=== PATIENT | female | born 1990 | race Two or more races ===

== ENCOUNTER 2016-09-23 19:33 | Emergency (ER) | payer OTHER ==
[2016-09-23 19:45] VITALS: BP 99/66; PULSE 63; TEMP 98.3; BMI 25.4
--- NOTE | 2016-09-23 20:40 | PDOC ---
History of Present Illness - General History Source: Patient <Pranav Chin - Last Filed: 09/23/16 23:46> - General History Source: Patient, Spouse Exam Limitations: No Limitations - History of Present Illness Initial Comments: 09/23/16 21:07 The patient is a 26-year-old female (1 day ), with a significant past medical history of a right ovarian cyst, who presents to the emergency department complaining of vaginal bleeding that began today (16:00) and approximately 1 week of abdominal cramping. The patient reports she took a home test today, which was positive. Since her episode of vaginal bleeding began, she reports seeing small blood clots. She denies vaginal discharge. The patient reports right lower quadrant abdominal pain and bilateral flank pain. She reports her LMP was on 09/02/16. The patient denies nausea, vomiting, diarrhea, or constipation. She denies dysuria, frequency, urgency, or hematuria. She denies any fever, chills cough, headache, or dizziness. She denies chest pain, diaphoresis, palpitations, and shortness of breath. Allergies: None reported. Past Surgical History: Appendectomy (2-3 years ago) Social History: Non-smoker. Denies alcohol or drug use. 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 <Yandel Ruiz - Last Filed: 09/23/16 23:52> - General Chief Complaint: Vaginal Bleeding Stated Complaint: VAGINAL BLEEDING Time Seen by Provider: 09/23/16 20:40 Past History - Psycho/Social/Smoking Cessation Hx Suicidal Ideation: No Smoking History: Never smoked Have you smoked in the past 12 months: No Hx Alcohol Use: No Drug/Substance Use Hx: No <Pranav Chin - Last Filed: 09/23/16 23:46> <Yandel Ruiz - Last Filed: 09/23/16 23:52> - Past Medical History Allergies/Adverse Reactions: Allergies Allergy/AdvReac Type Severity Reaction Status Date / Time No Known Allergies Allergy Verified 09/23/16 19:42 Home Medications: Ambulatory Orders NK [No Known Home Medication] 03/15/16 Review of Systems - Review of Systems Able to Perform ROS?: Yes Comments:: 09/23/16 21:07 CONSTITUTIONAL: Absent: fever, no chills, no fatigue EYES: Absent: visual changes ENT: Absent: ear pain, no sore throat CARDIOVASCULAR: Absent: chest pain, no palpitations RESPIRATORY: Absent: cough, no SOB GI: Present: +RLQ abdominal pain. Absent: no nausea, no vomiting, no constipation, no diarrhea GENITOURINARY: Present: +dysuria,+ vaginal bleeding Absent: no frequency, no hematuria MUSKULOSKELETAL: Present: +bilateral flank pain Absent: no arthralgia, no myalgia SKIN: Absent: rash NEURO: Absent: headache <Yandel Ruiz - Last Filed: 09/23/16 23:52> *Physical Exam - Vital Signs Last Vital Signs Temp Pulse Resp BP Pulse Ox 98.3 F 63 16 99/66 98 09/23/16 19:42 09/23/16 19:42 09/23/16 19:42 09/23/16 19:42 09/23/16 19:42 <Pranav Chin - Last Filed: 09/23/16 23:46> - Vital Signs Last Vital Signs Temp Pulse Resp BP Pulse Ox 98.3 F 63 16 99/66 98 09/23/16 19:42 09/23/16 19:42 09/23/16 19:42 09/23/16 19:42 09/23/16 19:42 - Physical Exam Comments: 09/23/16 21:08 GENERAL: Well-appearing, well-nourished. No apparent distress. HEENT: Normocephalic, atraumatic. PERRL, EOM intact. CARDIOVASCULAR: Normal S1, S2. Regular rate and rhythm. PULMONARY: Clear to auscultation bilaterally. ABDOMEN: +RLQ Tenderness. Non-distended. PELVIC: Refer to US. EXTREMITIES: Normal ROM in all four extremities. No gross deformities. SKIN: Warm, dry. No rash NEUROLOGICAL: No focal neurological deficits. <Yandel Ruiz - Last Filed: 09/23/16 23:52> ED Treatment Course - LABORATORY CBC & Chemistry Diagram: 09/23/16 20:52 09/23/16 20:52 <Pranav Chin - Last Filed: 09/23/16 23:46> - LABORATORY CBC & Chemistry Diagram: 09/23/16 20:52 09/23/16 20:52 - RADIOLOGY Radiograph Interpretation: 09/23/16 23:51 EXAM: Transvaginal Ultrasound INTERPRETED BY: Dr. Ross REVIEWED BY: Dr. Chin IMPRESSION: No intrauterine gestational sac is seen. Please correlate with serial quantitative serum beta hCG to determine further evaluation and follow- up. <Yandel Ruiz - Last Filed: 09/23/16 23:52> Medical Decision Making - Medical Decision Making 09/23/16 23:47 Dr. Chin: The scribe's documentation has been prepared under my direction and personally reviewed by me in its entirery. I confirm that the note above accurately reflects all work, treatment, procedures, and medical decision making performed by me. <Pranav Chin - Last Filed: 09/23/16 23:46> *DC/Admit/Observation/Transfer - Discharge Dispostion Admit: No <Pranav Chin - Last Filed: 09/23/16 23:46> - Attestations Scribe Attestion: 09/23/16 21:09 Documentation prepared by Yandel Ruiz, acting as medical claims representative for Pranav Chin DO. <Yandel Ruiz - Last Filed: 09/23/16 23:52> Diagnosis at time of Disposition: Qualifiers: Weeks of gestation: less than 8 weeks Qualified Code(s): Z3A.01 - Less than 8 weeks gestation of - Discharge Dispostion Disposition: HOME Condition at time of disposition: Stable - Referrals Referrals: Kemal Smalls MD [Primary Care Provider] - - Patient Instructions Printed Discharge Instructions: Managing Symptoms of
[2016-09-23] MEDS ORDERED: ACETAMINOPHEN 325 MG TABLET (FP) PO ONE (20:55)
[2016-09-23 21:30] LABS: BASOPHIL 0.6 % (0-2.0); EOSINOPHIL 1.3 % (0-4.5); MCH 27.2 pg (25.7-33.7); MCHC 31.8 g/dl (32.0-36.0); MEAN CELL VOLUME 85.6 fl (80-96); MEAN PLT VOLUME 9.4 fl (7.5-11.1); NEUTROPHILS 63.6 % (42.8-82.8); PLATELET COUNT 279 K/MM3 (134-434); RDW 14.5 % (11.6-15.6); WHITE BLOOD COUNT 8.7 K/mm3 (4.0-10.0)
[2016-09-23 21:54] LABS: ALBUMIN 4.2 g/dl (3.4-5.0); ANION GAP 6 (8-16); BILIRUBIN,TOTAL 0.3 mg/dL (0.2-1.0); CALCIUM 9.4 mg/dL (8.5-10.1); CO2 29 mmol/L (21-32); CREATININE 0.9 mg/dL (0.55-1.02); GLUCOSE,RANDOM 77 mg/dL (74-106); SGOT/AST 17 U/L (15-37); SGPT/ALT 28 U/L (12-78); TOT PROT 7.8 g/dl (6.4-8.2)
[2016-09-23 21:55] LABS: INR 0.97 (0.82-1.09); PROTHROMBIN TIME (PATIENT) 10.7 SEC (9.98-11.88)
[2016-09-23 21:56] LABS: ALK PHOS 65 U/L (45-117)
[2016-09-23 21:57] LABS: URINE APPEARANCE CLEAR; URINE BILIRUBIN NEGATIVE (NEGATIVE); URINE COLOR LTYELLOW; URINE GLUCOSE (UA) NEGATIVE (NEGATIVE); URINE KETONE NEGATIVE (NEGATIVE); URINE NITRITE NEGATIVE (NEGATIVE); URINE PROTEIN NEGATIVE (NEGATIVE); URINE UROBILINOGEN NEGATIVE E.U./dl (0.2-1.0)
[2016-09-23 21:58] LABS: URINE BLOOD 2+ (NEGATIVE); URINE LEUK ESTERASE 1+ (NEGATIVE)
[2016-09-23 21:59] LABS: URINE RBC 1 /hpf (0-3); URINE WBC 5 /hpf (3-5)
[2016-09-23] MEDS ORDERED: ACETAMINOPHEN 325 MG TABLET (FP) ONE (22:07)
== END 2016-09-23 23:47 | disposition home or self-care (01) ==
LOC: JER 19:33
DX: O26.891 Other specified pregnancy related conditions, first trimester (principal); R20.8 Other disturbances of skin sensation; Z3A.01 Less than 8 weeks gestation of pregnancy
CPT/HCPCS: 36415; 76817-TC; 80053; 81003; 81015; 84702; 84703; 85025; 85610; 99283-25

== ENCOUNTER 2016-12-30 23:50 | Emergency (ER) | payer OTHER ==
[2016-12-31 00:26] VITALS: BP 116/65; PULSE 72; TEMP 97.9; BMI 26.9
[2016-12-31 01:38] LABS: URINE APPEARANCE CLEAR; URINE BILIRUBIN NEGATIVE (NEGATIVE); URINE BLOOD NEGATIVE (NEGATIVE); URINE COLOR STRAW; URINE GLUCOSE (UA) NEGATIVE (NEGATIVE); URINE KETONE NEGATIVE (NEGATIVE); URINE NITRITE NEGATIVE (NEGATIVE); URINE PROTEIN NEGATIVE (NEGATIVE); URINE UROBILINOGEN NEGATIVE E.U./dl (0.2-1.0)
[2016-12-31 01:39] LABS: URINE LEUK ESTERASE TRACE (NEGATIVE)
[2016-12-31 01:46] LABS: URINE RBC <1 /hpf (0-3); URINE WBC 1 /hpf (3-5)
--- NOTE | 2016-12-31 02:01 | PDOC ---
History of Present Illness - General Chief Complaint: Pain Stated Complaint: ABDOMINAL PAIN/17 WKS Time Seen by Provider: 12/31/16 00:18 - History of Present Illness Initial Comments: 12/31/16 01:00 CHIEF COMPLAINT: abd cramping in HISTORY OF PRESENT ILLNESS: 26 yo 17 wk F with no PMH presents to ED with abd cramping and discomfort since today. Patient reports that she did not feel the baby move today and got concerned. Patient denies any vaginal bleeding , discharge, or any fever, nausea, vomiting, or diarrhea. Patient denies any urinary discomfort, pain, or hematuria. No recent travel or sick contacts. PAST MEDICAL HISTORY: Denies past medical history FAMILY HISTORY: Denies SOCIAL HISTORY: Denies tobacco, alcohol, illicit drug use. SURGICAL HISTORY: Denies ALLERGIES: No known drug allergies REVIEW OF SYSTEMS General/Constitutional: Denies fever or chills. Denies weakness, weight change. HEENT: Denies change in vision. Denies ear pain or discharge. Denies sore throat. Cardiovascular: Denies chest pain or shortness of breath. Respiratory: Denies cough, wheezing, or hemoptysis. Gastrointestinal: Abdominal pain. Denies nausea, vomiting, diarrhea or constipation. Denies rectal bleeding. Genitourinary: Denies dysuria, frequency, or change in urination. Musculoskeletal: Denies joint or muscle swelling or pain. Denies neck or back pain. Skin and breasts: Denies rash or easy bruising. PHYSICAL EXAM General Appearance: Well-appearing, appropriately dressed. No apparent distress. HEENT: EOMI, PERRLA, normal ENT inspection, normal voice, TMs normal, pharynx normal. No conjunctival pallor. No photophobia, scleral icterus. Respiratory/Chest: Lungs CTAB. Cardiovascular: RRR. S1, S2. Gastrointestinal/Abdominal: Normal bowel sounds. Abdomen soft, non-distended. No tenderness or rebound tenderness. No organomegaly, pulsatile mass, guarding , hernia, hepatomegaly, splenomegaly. Lymphatic: No adenopathy, tenderness. Musculoskeletal/Extremities: Normal inspection. FROM of all extremities, normal capillary refill. Pelvis Stable. No CVA tenderness. No tenderness to extremities, pedal edema, swelling, erythema or deformity. Integumentary: Appropriate color, dry, warm. No cyanosis, erythema, jaundice or rash Neurologic: dairy technologist II-XII intact. Fully oriented, alert. Appropriate mood/affect. Motor strength 5/5. No appreciable EOM palsy, facial droop or sensory deficit. Past History - Past Medical History Allergies/Adverse Reactions: Allergies Allergy/AdvReac Type Severity Reaction Status Date / Time No Known Allergies Allergy Verified 12/31/16 00:22 Home Medications: Ambulatory Orders NK [No Known Home Medication] 03/15/16 - Psycho/Social/Smoking Cessation Hx Suicidal Ideation: No Smoking History: Never smoked Have you smoked in the past 12 months: No Information on smoking cessation initiated: No Hx Alcohol Use: No Drug/Substance Use Hx: No *Physical Exam - Vital Signs Last Vital Signs Temp Pulse Resp BP Pulse Ox 97.9 F 72 14 116/65 100 12/31/16 00:23 12/31/16 00:23 12/31/16 00:23 12/31/16 00:23 12/31/16 00:23 ED Treatment Course - RADIOLOGY Radiology Studies Ordered: Category Date Time Status TRANSVAGINAL US PREG [US] Stat Ultrasound 12/31/16 00:59 Ordered Medical Decision Making - Medical Decision Making 12/31/16 02:25 26 yo 17 wk preg F presents to ED with abd cramping. -beta HCG -UA, UCx -TV U/S eval IUP/FHR EXAM: OB Ultrasound >/=14 wks single fetus Single live intrauterine Gestational age 17 weeks 5 days heart rate 154 bpm Closed cervix 4.0 cm long Vertex presentation Posterior placenta Largest amniotic fluid pocket 4.8 cm. Read by: Yin Birch M.D. Advised patient to f/u with OBGYN tomorrow and of signs and symptoms for return to ER; patient verbalized understanding and agrees to plan. 12/31/16 03:18 *DC/Admit/Observation/Transfer Diagnosis at time of Disposition: Abdominal pain in Qualifiers: Trimester: second trimester Qualified Code(s): O26.892 - Other specified related conditions, second trimester - Discharge Dispostion Disposition: HOME Condition at time of disposition: Stable Admit: No - Referrals Referrals: Kemal Smalls MD [Primary Care Provider] - - Patient Instructions Printed Discharge Instructions: DI for Threatened Additional Instructions: Please follow up at the [facility] within the next two days. If you experience any vaginal bleeding, headache, dizziness, unusual discharge, or any new or worsening symptoms, please return to the ER.
== END 2016-12-31 02:35 | disposition home or self-care (01) ==
LOC: JER 23:50
DX: O26.892 Other specified pregnancy related conditions, second trimester (principal); R10.30 Lower abdominal pain, unspecified; Z3A.17 17 weeks gestation of pregnancy
CPT/HCPCS: 36415; 76801-TC; 81003; 81015; 84702; 87086; 99283-25

== ENCOUNTER 2021-07-22 11:19 | Emergency (ER) | payer SELFPAY ==
[2021-07-22 11:38] VITALS: BMI 29.8
[2021-07-22] MEDS ORDERED: ACETAMINOPHEN 1000 MG/100 ML VIAL IVPB ONE (12:59)
[2021-07-22] MEDS ORDERED: SODIUM CHLORIDE 0.9% 500 ML INFUS.BAG IV ONE (12:59)
[2021-07-22] MEDS ORDERED: ACETAMINOPHEN INJECTION 100 ML IVPB ONE (13:20)
[2021-07-22 14:08] LABS: EPI CELLS 25 /uL (0-25.1); HYALINE CASTS 0 /uL (0-3.1); PH,URINE >= 9.0 (5.0-8.0); URINE APPEARANCE CLEAR; URINE BACTERIA 652 /uL (0-1359); URINE BILIRUBIN NEGATIVE (NEGATIVE); URINE COLOR YELLOW; URINE GLUCOSE (UA) NEGATIVE (NEGATIVE); URINE KETONE NEGATIVE (NEGATIVE); URINE LEUK ESTERASE 3+ (NEGATIVE); URINE NITRITE NEGATIVE (NEGATIVE); URINE PROTEIN NEGATIVE (NEGATIVE); URINE RBC 30 /uL (0-23.9); URINE WBC 309 /uL (0-25.8)
[2021-07-22 14:21] LABS: BASO % 0.3 % (0-2.0); HEMATOCRIT 42.4 % (32.4-45.2); HEMOGLOBIN 14.1 GM/dL (10.7-15.3); LYMPH % 21.8 % (8-40); MCH 27.8 pg (25.7-33.7); MCHC 33.2 g/dl (32.0-36.0); MEAN CELL VOLUME 83.8 fl (80-96); MEAN PLT VOLUME 9.4 fl (7.5-11.1); MONO % 3.9 % (3.8-10.2); PLATELET COUNT 269 10^3/uL (134-434); RBC 5.06 M/mm3 (3.60-5.2); RDW 14.5 % (11.6-15.6); WHITE BLOOD COUNT 9.8 K/mm3 (4.0-10.0)
[2021-07-22 14:37] LABS: CALCIUM 9.8 mg/dL (8.5-10.1)
[2021-07-22 14:38] LABS: ALBUMIN 4.4 g/dl (3.4-5.0); BLOOD UREA NITROGEN 7.8 mg/dL (7-18)
[2021-07-22 14:41] LABS: CREATININE 0.9 mg/dL (0.55-1.3)
[2021-07-22 14:42] LABS: BILIRUBIN,TOTAL 0.6 mg/dL (0.2-1); TOT PROT 8.6 g/dl (6.4-8.2)
[2021-07-22] MEDS ORDERED: CEFTRIAXONE 1,000 MG in DEXTROSE 5%-WATER - 50 ML IVPB ONE (14:52)
[2021-07-22] MEDS ORDERED: CEFTRIAXONE 1 GM/50 ML BAG ONE (15:07)
[2021-07-22 20:05] VITALS: BP 118/78; PULSE 78; TEMP 98.7
== END 2021-07-22 20:11 | disposition home or self-care (01) ==
LOC: JER 11:19
PROC: 3E033GC Introduction of Other Therapeutic Substance into Peripheral Vein, Percutaneous Approach (ICD-10-PCS; principal; 2021-07-22)
DX: R10.84 Generalized abdominal pain (principal)
CPT/HCPCS: 36415; 74177-TC; 76830-TC; 80053; 81003; 83605; 83690; 84703; 85025; 87086; 87491; 87591; 99285-25; C9803; J0131; Q9967; U0003; U0005

== ENCOUNTER 2021-08-03 13:32 | Emergency (ER) | payer SELFPAY ==
[2021-08-03 13:45] VITALS: BP 102/68; TEMP 97.5; BMI 29.0
[2021-08-03] MEDS ORDERED: ASPIRIN 81 MG CHEWABLE TABLETS PO ONE (15:48)
[2021-08-03 17:10] LABS: BASO % 0.9 % (0-2.0); EOS % 1.2 % (0-4.5); HEMATOCRIT 38.1 % (32.4-45.2); HEMOGLOBIN 12.6 GM/dL (10.7-15.3); LYMPH % 31.6 % (8-40); MCH 27.8 pg (25.7-33.7); MCHC 33.1 g/dl (32.0-36.0); MEAN CELL VOLUME 83.9 fl (80-96); MEAN PLT VOLUME 9.8 fl (7.5-11.1); MONO % 5.7 % (3.8-10.2); NEUT % 60.6 % (42.8-82.8); PLATELET COUNT 292 10^3/uL (134-434); RBC 4.54 M/mm3 (3.60-5.2); RDW 14.6 % (11.6-15.6); WHITE BLOOD COUNT 6.9 K/mm3 (4.0-10.0)
[2021-08-03] MEDS ORDERED: ASPIRIN 81 MG CHEWABLE TABLETS ONE (17:14)
[2021-08-03 17:19] LABS: INR 0.97 (0.83-1.09); PROTHROMBIN TIME (PATIENT) 11.4 SEC (9.7-13.0)
[2021-08-03 17:26] LABS: CHLORIDE 105 mmol/L (98-107); SODIUM 137 mmol/L (136-145)
[2021-08-03 17:29] LABS: ALBUMIN 3.9 g/dl (3.4-5.0); ANION GAP 2 MMOL/L (8-16); BLOOD UREA NITROGEN 11.5 mg/dL (7-18); CO2 30 mmol/L (21-32); GLUCOSE,RANDOM 74 mg/dL (74-106); MAGNESIUM 2.1 mg/dL (1.8-2.4)
[2021-08-03 17:32] LABS: CREATININE 0.6 mg/dL (0.55-1.3); SGOT/AST 22 U/L (15-37); SGPT/ALT 28 U/L (13-61)
[2021-08-03 17:34] LABS: BILIRUBIN,TOTAL 0.6 mg/dL (0.2-1); TOT PROT 7.7 g/dl (6.4-8.2)
[2021-08-03 17:50] LABS: ALK PHOS 65 U/L (45-117)
[2021-08-03 18:02] VITALS: PULSE 64
== END 2021-08-03 18:05 | disposition home or self-care (01) ==
LOC: JER 13:32
DX: R07.82 Intercostal pain (principal)
CPT/HCPCS: 36415; 71046-TC-FY; 80053; 82550; 83735; 84484; 84703; 85025; 85610; 85730; 93005; 93010; 99285-25

== ENCOUNTER 2021-09-12 16:46 | Emergency (ER) | payer OTHER ==
[2021-09-12 16:57] VITALS: BP 108/60; PULSE 78; TEMP 98.7; BMI 34.2
[2021-09-12] MEDS ORDERED: IBUPROFEN 600 MG TABLET (FP) PO ONE ×2 (17:20→17:53)
== END 2021-09-12 18:30 | disposition home or self-care (01) ==
LOC: JERFT 16:46 → JER 16:46 → JERFT 18:30
DX: M25.522 Pain in left elbow (principal); W50.0XXA Accidental hit or strike by another person, initial encounter
CPT/HCPCS: 73070-TC-LT-FY; 99284-25; C9803; U0003; U0005

== ENCOUNTER 2022-01-28 21:55 | Emergency (ER) | payer OTHER ==
[2022-01-28 22:03] VITALS: PULSE 74; TEMP 97.9; BMI 29.2
[2022-01-29 00:06] LABS: BASO % 0.3 % (0-2.0); EOS % 1.5 % (0-4.5); HEMATOCRIT 38.4 % (32.4-45.2); HEMOGLOBIN 12.8 GM/dL (10.7-15.3); LYMPH % 29.8 % (8-40); MCH 28.1 pg (25.7-33.7); MCHC 33.3 g/dl (32.0-36.0); MEAN CELL VOLUME 84.5 fl (80-96); MEAN PLT VOLUME 8.8 fl (7.5-11.1); MONO % 4.7 % (3.8-10.2); NEUT % 63.7 % (42.8-82.8); PLATELET COUNT 269 10^3/uL (134-434); RBC 4.55 M/mm3 (3.60-5.2); RDW 14.7 % (11.6-15.6); WHITE BLOOD COUNT 9.4 K/mm3 (4.0-10.0)
[2022-01-29 00:26] LABS: CALCIUM 8.9 mg/dL (8.5-10.1)
[2022-01-29 00:27] LABS: ALBUMIN 3.9 g/dl (3.4-5.0); BLOOD UREA NITROGEN 16.1 mg/dL (7-18); MAGNESIUM 2.3 mg/dL (1.8-2.4)
[2022-01-29 00:30] LABS: CREATININE 0.7 mg/dL (0.55-1.3)
[2022-01-29 00:32] LABS: BILIRUBIN,TOTAL 0.2 mg/dL (0.2-1); TOT PROT 7.2 g/dl (6.4-8.2)
[2022-01-29 02:35] VITALS: BP 112/76
== END 2022-01-29 02:35 | disposition left against medical advice (07) ==
LOC: JER 21:55
DX: R07.9 Chest pain, unspecified (principal)
CPT/HCPCS: 36415; 80053; 83735; 84484; 84703; 85025; 93005; 93010; 99284-25

== ENCOUNTER 2022-08-03 07:00 | Emergency (ER) | payer OTHER ==
[2022-08-03 07:42] VITALS: BMI 30.3
[2022-08-03] MEDS ORDERED: ACETAMINOPHEN 1000 MG/100 ML BAG IVPB ONE (07:50)
[2022-08-03] MEDS ORDERED: SODIUM CHLORIDE 0.9% 500 ML INFUS.BAG IV ONE (07:50)
[2022-08-03] MEDS ORDERED: ONDANSETRON 4 MG/2 ML VIAL IVPUSH ONE (07:50)
[2022-08-03] MEDS ORDERED: ONDANSETRON 4 MG/2 ML VIAL ONE (07:59)
[2022-08-03] MEDS ORDERED: ACETAMINOPHEN INJECTION 100 ML IVPB ONE (07:59)
[2022-08-03 09:16] LABS: BASO % 0.3 % (0-2.0); EOS % 1.5 % (0-4.5); HEMOGLOBIN 12.8 GM/dL (10.7-15.3); MCH 27.2 pg (25.7-33.7); MCHC 32.1 g/dl (32.0-36.0); MEAN CELL VOLUME 84.8 fl (80-96); MEAN PLT VOLUME 9.5 fl (7.5-11.1); MONO % 4.6 % (3.8-10.2); NEUT % 78.6 % (42.8-82.8); PLATELET COUNT 286 10^3/uL (134-434); RBC 4.72 M/mm3 (3.60-5.2); RDW 15.2 % (11.6-15.6); WHITE BLOOD COUNT 11.2 K/mm3 (4.0-10.0)
[2022-08-03 09:18] LABS: EPI CELLS 1 /uL (0-25.1); HYALINE CASTS 0 /uL (0-3.1); PH,URINE 5.5 (5.0-8.0); URINE APPEARANCE CLOUDY; URINE BACTERIA 248 /uL (0-1359); URINE BILIRUBIN NEGATIVE (NEGATIVE); URINE COLOR YELLOW; URINE GLUCOSE (UA) NEGATIVE (NEGATIVE); URINE KETONE NEGATIVE (NEGATIVE); URINE LEUK ESTERASE 2+ (NEGATIVE); URINE NITRITE NEGATIVE (NEGATIVE); URINE PROTEIN 3+ (NEGATIVE); URINE RBC 53 /uL (0-23.9); URINE UROBILINOGEN 0.2 mg/dL (0.2-1.0); URINE WBC 2 /uL (0-25.8)
[2022-08-03 11:33] LABS: CALCIUM 8.4 mg/dL (8.5-10.1)
[2022-08-03 11:34] LABS: ALBUMIN 3.4 g/dl (3.4-5.0); BLOOD UREA NITROGEN 10.9 mg/dL (7-18)
[2022-08-03 11:37] LABS: CREATININE 0.5 mg/dL (0.55-1.3)
[2022-08-03 11:39] LABS: BILIRUBIN,TOTAL 0.6 mg/dL (0.2-1); TOT PROT 6.4 g/dl (6.4-8.2)
[2022-08-03 13:19] VITALS: BP 100/68; PULSE 78; RESP 19; TEMP 97.9
== END 2022-08-03 12:10 | disposition home or self-care (01) ==
LOC: JER 07:00
PROC: 3E0333Z Introduction of Anti-inflammatory into Peripheral Vein, Percutaneous Approach (ICD-10-PCS; principal; 2022-08-03)
PROC: 3E033GC Introduction of Other Therapeutic Substance into Peripheral Vein, Percutaneous Approach (ICD-10-PCS; 2022-08-03)
DX: N30.01 Acute cystitis with hematuria (principal)
CPT/HCPCS: 0241U-QW; 36415; 74176-TC; 80053; 81003; 84703; 85025; 87077; 87086; 87186; 99284-25

== ENCOUNTER 2022-08-06 18:48 | Emergency (ER) | payer OTHER ==
[2022-08-06 19:59] VITALS: BMI 30.3
[2022-08-06] MEDS ORDERED: CEFTRIAXONE 1 GM in DEXTROSE 5%-WATER - 100 ML IVPB ONE (21:18)
[2022-08-06] MEDS ORDERED: ACETAMINOPHEN 1000 MG/100 ML BAG IVPB ONE (21:24)
[2022-08-06] MEDS ORDERED: ONDANSETRON 4 MG/2 ML VIAL IVPUSH ONE (21:27)
[2022-08-06] MEDS ORDERED: ONDANSETRON 4 MG/2 ML VIAL ONE (22:11)
[2022-08-06] MEDS ORDERED: ACETAMINOPHEN INJECTION 100 ML IVPB ONE (22:11)
[2022-08-06] MEDS ORDERED: CEFTRIAXONE 1 GM/50 ML BAG ONE (22:12)
[2022-08-06 23:43] LABS: BASO % 0.8 % (0-2.0); EOS % 1.7 % (0-4.5); HEMATOCRIT 39.8 % (32.4-45.2); HEMOGLOBIN 12.9 GM/dL (10.7-15.3); LYMPH % 38.4 % (8-40); MCH 27.1 pg (25.7-33.7); MCHC 32.5 g/dl (32.0-36.0); MEAN CELL VOLUME 83.6 fl (80-96); MEAN PLT VOLUME 9.8 fl (7.5-11.1); MONO % 13.1 % (3.8-10.2); PLATELET COUNT 252 10^3/uL (134-434); RBC 4.76 M/mm3 (3.60-5.2); RDW 14.7 % (11.6-15.6); WHITE BLOOD COUNT 4.8 K/mm3 (4.0-10.0)
[2022-08-07 00:01] LABS: EPI CELLS >36 /uL (0-25.1); HYALINE CASTS 2 /uL (0-3.1); PH,URINE 5.5 (5.0-8.0); URINE APPEARANCE CLOUDY; URINE BACTERIA 1143 /uL (0-1359); URINE BILIRUBIN NEGATIVE (NEGATIVE); URINE COLOR YELLOW; URINE GLUCOSE (UA) NEGATIVE (NEGATIVE); URINE KETONE TRACE (NEGATIVE); URINE LEUK ESTERASE TRACE (NEGATIVE); URINE NITRITE NEGATIVE (NEGATIVE); URINE PROTEIN NEGATIVE (NEGATIVE); URINE UROBILINOGEN 0.2 mg/dL (0.2-1.0); URINE WBC 97 /uL (0-25.8)
[2022-08-07 00:07] LABS: ALBUMIN 3.7 g/dl (3.4-5.0)
[2022-08-07 00:10] LABS: CREATININE 0.7 mg/dL (0.55-1.3)
[2022-08-07 00:12] LABS: BILIRUBIN,TOTAL 0.4 mg/dL (0.2-1)
[2022-08-07 01:53] LABS: URINE RBC 21.6 /uL (0-23.9)
[2022-08-07 02:38] VITALS: BP 103/70; PULSE 70; RESP 18; TEMP 98.2
== END 2022-08-07 05:31 | disposition home or self-care (01) ==
LOC: JER 18:48
PROC: 3E033GC Introduction of Other Therapeutic Substance into Peripheral Vein, Percutaneous Approach (ICD-10-PCS; principal; 2022-08-06)
DX: N39.0 Urinary tract infection, site not specified (principal)
CPT/HCPCS: 36415; 74176-TC; 76830-TC; 80053; 81003; 84703; 85025; 87086; 93005; 93010; 99285-25

== ENCOUNTER 2022-10-03 21:20 | Emergency (ER) | payer OTHER ==
[2022-10-03 21:31] VITALS: BP 122/85; PULSE 72; RESP 19; TEMP 97.9; BMI 28.8
[2022-10-03] MEDS ORDERED: ACETAMINOPHEN 1000 MG/100 ML BAG IVPB ONE (22:20)
[2022-10-03] MEDS ORDERED: ACETAMINOPHEN INJECTION 100 ML IVPB ONE (22:44)
[2022-10-03 23:21] LABS: BASO % 0.6 % (0-2.0); EOS % 1.2 % (0-4.5); HEMATOCRIT 43.6 % (32.4-45.2); HEMOGLOBIN 14.1 GM/dL (10.7-15.3); LYMPH % 35.9 % (8-40); MCH 27.4 pg (25.7-33.7); MCHC 32.4 g/dl (32.0-36.0); MEAN CELL VOLUME 84.7 fl (80-96); MEAN PLT VOLUME 9.1 fl (7.5-11.1); MONO % 4.9 % (3.8-10.2); NEUT % 57.4 % (42.8-82.8); PLATELET COUNT 310 10^3/uL (134-434); RBC 5.15 M/mm3 (3.60-5.2); RDW 14.8 % (11.6-15.6); WHITE BLOOD COUNT 8.5 K/mm3 (4.0-10.0)
[2022-10-03 23:43] LABS: CALCIUM 9.9 mg/dL (8.5-10.1)
[2022-10-03 23:44] LABS: ALBUMIN 4.5 g/dl (3.4-5.0); BLOOD UREA NITROGEN 11.4 mg/dL (7-18)
[2022-10-03 23:47] LABS: CREATININE 0.6 mg/dL (0.55-1.3)
[2022-10-03 23:49] LABS: TOT PROT 8.3 g/dl (6.4-8.2)
[2022-10-04] LABS: BILIRUBIN,TOTAL 0.6 mg/dL (0.2-1)
== END 2022-10-04 00:25 | disposition home or self-care (01) ==
LOC: JER 21:20
PROC: 3E0333Z Introduction of Anti-inflammatory into Peripheral Vein, Percutaneous Approach (ICD-10-PCS; principal; 2022-10-03)
DX: R07.89 Other chest pain (principal)
CPT/HCPCS: 0241U-QW; 71046-TC-FY; 80053; 84484; 84703; 85025; 85379; 93005; 93010; 99285-25

== ENCOUNTER 2022-11-27 17:41 | Emergency (ER) | payer OTHER ==
[2022-11-27 18:00] VITALS: RESP 16; BMI 29.3
[2022-11-27] MEDS ORDERED: ACETAMINOPHEN 325 MG TABLET (FP) PO ONE (19:04)
[2022-11-27 19:06] LABS: HCG,QUALITATIVE URINE Positive
[2022-11-27 19:08] LABS: PH,URINE 5.5 (5.0-8.0); URINE APPEARANCE CLEAR; URINE BILIRUBIN NEGATIVE (NEGATIVE); URINE COLOR YELLOW; URINE GLUCOSE (UA) NEGATIVE (NEGATIVE); URINE KETONE NEGATIVE (NEGATIVE); URINE LEUK ESTERASE NEGATIVE (NEGATIVE); URINE NITRITE NEGATIVE (NEGATIVE); URINE PROTEIN NEGATIVE (NEGATIVE); URINE UROBILINOGEN 0.2 mg/dL (0.2-1.0)
[2022-11-27] MEDS ORDERED: ACETAMINOPHEN 325 MG TABLET (FP) ONE (19:26)
[2022-11-27] MEDS ORDERED: LACTATED RINGERS SOLUTION 1,000 ML/1,000 ML INFUS.BAG IV SCH (19:45)
[2022-11-27 20:04] VITALS: PULSE 74; TEMP 98
[2022-11-27 20:05] LABS: INR 1.04 (0.83-1.09); PROTHROMBIN TIME (PATIENT) 12.1 SEC (9.7-13.0)
[2022-11-27 20:07] LABS: ACTIVATED PTT 30.8 SECONDS (25.2-36.5)
[2022-11-27 20:08] VITALS: BP 110/60
[2022-11-27 20:13] LABS: ALBUMIN 3.8 g/dl (3.4-5.0); BLOOD UREA NITROGEN 12.4 mg/dL (7-18); CALCIUM 9.3 mg/dL (8.5-10.1)
[2022-11-27 20:16] LABS: BASO % 0.5 % (0-2.0); EOS % 1.3 % (0-4.5); HEMATOCRIT 36.4 % (32.4-45.2); HEMOGLOBIN 12.1 GM/dL (10.7-15.3); LYMPH % 27.5 % (8-40); MCH 27.8 pg (25.7-33.7); MCHC 33.3 g/dl (32.0-36.0); MEAN CELL VOLUME 83.5 fl (80-96); MEAN PLT VOLUME 9.4 fl (7.5-11.1); MONO % 5.3 % (3.8-10.2); NEUT % 65.4 % (42.8-82.8); PLATELET COUNT 276 10^3/uL (134-434); RBC 4.36 M/mm3 (3.60-5.2); RDW 15.2 % (11.6-15.6); WHITE BLOOD COUNT 9.7 K/mm3 (4.0-10.0)
[2022-11-27 20:17] LABS: CREATININE 0.5 mg/dL (0.55-1.3)
[2022-11-27 20:18] LABS: BILIRUBIN,TOTAL 0.3 mg/dL (0.2-1)
== END 2022-11-27 20:40 | disposition short-term general hospital (02) ==
LOC: JER 17:41
DX: O26.891 Other specified pregnancy related conditions, first trimester (principal); R10.9 Unspecified abdominal pain; V43.52XA Car driver injured in collision with other type car in traffic accident, initial encounter; Z20.822 Contact with and (suspected) exposure to COVID-19
CPT/HCPCS: 36415; 76604; 76705-TC; 80053; 81003; 84702; 84703; 85025; 85610; 85730; 86850; 86900; 86901; 93308; 99285-25; C9803-CS; U0003; U0005

== ENCOUNTER 2023-06-29 10:10 | Inpatient (IN) | payer OTHER ==
[2023-06-29 11:39] LABS: BASO % 0.2 % (0-2.0); EOS % 0.7 % (0-4.5); HEMATOCRIT 37.2 % (32.4-45.2); HEMOGLOBIN 12.5 GM/dL (10.7-15.3); LYMPH % 18.1 % (8-40); MCHC 33.5 g/dl (32.0-36.0); MEAN CELL VOLUME 86.5 fl (80-96); MEAN PLT VOLUME 8.8 fl (7.5-11.1); MONO % 4.7 % (3.8-10.2); NEUT % 76.3 % (42.8-82.8); PLATELET COUNT 231 10^3/uL (134-434); RDW 14.3 % (11.6-15.6)
[2023-06-29 11:59] VITALS: BMI 33.7
[2023-06-29 12:05] LABS: INR 0.95 (0.83-1.09)
[2023-06-29 12:08] LABS: ACTIVATED PTT 26.2 SECONDS (25.2-36.5)
[2023-06-29 12:15] LABS: POTASSIUM 3.9 mmol/L (3.5-5.1)
[2023-06-29 12:17] LABS: BLOOD UREA NITROGEN 8.2 mg/dL (7-18); CALCIUM 8.8 mg/dL (8.5-10.1)
[2023-06-29 12:21] LABS: CREATININE 0.5 mg/dL (0.55-1.3)
[2023-06-29] MEDS ORDERED: CITRIC ACID/SODIUM CITRATE 30 ML UNIT-DOSE CUP PO ONE (13:05)
[2023-06-29 13:12] LABS: HIV INTERPRETATION NEGATIVE (NEGATIVE)
[2023-06-29] MEDS ORDERED: ELECTROLYTE-148 SOLN 1,000 ML IV SCH (13:15)
[2023-06-29] MEDS ORDERED: ONDANSETRON 4 MG/2 ML VIAL IVPUSH PRN (15:13)
[2023-06-29] MEDS ORDERED: METHYLERGONOVINE MALEATE 0.2 MG/1 ML AMP IM PRN (15:14)
[2023-06-29] MEDS ORDERED: WITCH HAZEL 50% (TUCKS) 40 PAD/JAR PAD TP PRN (15:14)
[2023-06-29] MEDS ORDERED: ACETAMINOPHEN 325 MG TABLET (FP) PO PRN (15:14)
[2023-06-29] MEDS ORDERED: IBUPROFEN 800 MG/8 ML IJ IVPB PRN (15:14)
[2023-06-29] MEDS ORDERED: FENTANYL CITRATE/PF 50 MCG/ML VIAL ONE (15:46)
[2023-06-29] MEDS ORDERED: morphine SULFATE/PF 1 MG/2 ML (2cc Syringe - QUVA) ONE (15:46)
[2023-06-29] MEDS ORDERED: OXYTOCIN 10 UNITS/ML VIAL ONE ×2 (16:13)
[2023-06-29] MEDS: OXYTOCIN 20 UNITS in 0.9% NS 20 UNIT/1,000 ML INFUS.BAG IV SCH (16:17)
[2023-06-29] MEDS ORDERED: TRANEXAMIC ACID 1000 MG/10 ML VIAL ONE (16:26)
[2023-06-29 16:55] LABS: CORD BASE EXCESS -2.1 mmol/L (0-2); CORD HCO3 24.8 mmHg (20-29); CORD PCO2 50.4 mmHg (30-78); CORD pH 7.31 (7.14-7.44)
[2023-06-29 16:56] LABS: CORD BASE EXCESS -2.1 mmol/L (0-2); CORD HCO3 23.8 mmHg (20-29); CORD PCO2 45.1 mmHg (30-78); CORD pH 7.341 (7.14-7.44)
[2023-06-29] MEDS ORDERED: OXYTOCIN 20 UNITS in 0.9% NS 20 UNIT/1,000 ML INFUS.BAG IV ONE (17:09)
[2023-06-29] MEDS: SIMETHICONE 80 MG TAB.CHEW (FP) PO PRN (19:50)
[2023-06-29] MEDS: FERROUS SO4 325 MG TABLET (FP) PO SCH (21:03)
[2023-06-30] MEDS: OXYTOCIN 20 UNITS in 0.9% NS 20 UNIT/1,000 ML INFUS.BAG IV SCH (00:55)
[2023-06-30] MEDS: IBUPROFEN 600 MG TABLET (FP) PO PRN ×3 (06:42→18:20)
[2023-06-30 07:53] LABS: BASO % 0.2 % (0-2.0); EOS % 0.8 % (0-4.5); HEMOGLOBIN 11.9 GM/dL (10.7-15.3); LYMPH % 12.6 % (8-40); MCH 28.9 pg (25.7-33.7); MCHC 33.2 g/dl (32.0-36.0); MEAN PLT VOLUME 8.8 fl (7.5-11.1); MONO % 5.5 % (3.8-10.2); NEUT % 80.9 % (42.8-82.8); PLATELET COUNT 189 10^3/uL (134-434); RBC 4.14 M/mm3 (3.60-5.2); RDW 13.9 % (11.6-15.6); WHITE BLOOD COUNT 9.2 K/mm3 (4.0-10.0)
[2023-06-30] MEDS: FERROUS SO4 325 MG TABLET (FP) PO SCH ×2 (09:48→21:49)
[2023-06-30] MEDS: PRENATAL VITAMINS W/ FOLIC ACID TABLET (FP) PO SCH (09:48)
[2023-06-30] MEDS: SIMETHICONE 80 MG TAB.CHEW (FP) PO PRN ×2 (13:07→19:49)
[2023-06-30] MEDS: oxyCODONE HCL 5 MG TABLET PO PRN ×2 (13:08→19:48)
[2023-06-30] MEDS ORDERED: BISACODYL 10 MG SUPP.RECT RC PRN (15:14)
[2023-07-01] MEDS: SIMETHICONE 80 MG TAB.CHEW (FP) PO PRN ×4 (08:15→23:48)
[2023-07-01] MEDS: IBUPROFEN 600 MG TABLET (FP) PO PRN (08:15)
[2023-07-01] MEDS: FERROUS SO4 325 MG TABLET (FP) PO SCH ×2 (09:27→22:29)
[2023-07-01] MEDS: oxyCODONE HCL 5 MG TABLET PO PRN ×4 (09:27→23:51)
[2023-07-01] MEDS: PRENATAL VITAMINS W/ FOLIC ACID TABLET (FP) PO SCH (09:27)
[2023-07-01 10:56] VITALS: RESP 18
[2023-07-01] MEDS ORDERED: IBUPROFEN 600 MG TABLET (FP) PO PRN (16:51)
[2023-07-01] MEDS ORDERED: ACETAMINOPHEN 325 MG TABLET (FP) PO PRN (16:52)
[2023-07-01] MEDS: DOCUSATE SODIUM 100 MG CAPSULE (FP) PO SCH (22:29)
[2023-07-01] MEDS: POLYETHYLENE GLYCOL (HEALTHYLAX) 3350 17 GM PACKET PO SCH (22:29)
[2023-07-02] MEDS: SIMETHICONE 80 MG TAB.CHEW (FP) PO PRN ×2 (03:43→08:02)
[2023-07-02] MEDS: oxyCODONE HCL 5 MG TABLET PO PRN ×2 (03:44→08:02)
[2023-07-02 08:55] LABS: BASO % 0.5 % (0-2.0); EOS % 1.8 % (0-4.5); HEMOGLOBIN 12.5 GM/dL (10.7-15.3); LYMPH % 25.8 % (8-40); MCH 28.9 pg (25.7-33.7); MEAN CELL VOLUME 87.4 fl (80-96); MONO % 6.6 % (3.8-10.2); NEUT % 65.3 % (42.8-82.8); PLATELET COUNT 252 10^3/uL (134-434); RBC 4.35 M/mm3 (3.60-5.2); RDW 14.3 % (11.6-15.6); WHITE BLOOD COUNT 8.4 K/mm3 (4.0-10.0)
[2023-07-02 09:19] VITALS: BP 103/64; PULSE 84; TEMP 98.4
[2023-07-02] MEDS: PRENATAL VITAMINS W/ FOLIC ACID TABLET (FP) PO SCH (10:26)
[2023-07-02] MEDS: FERROUS SO4 325 MG TABLET (FP) PO SCH (10:26)
[2023-07-02] MEDS: POLYETHYLENE GLYCOL (HEALTHYLAX) 3350 17 GM PACKET PO SCH (10:26)
[2023-07-02] MEDS: DOCUSATE SODIUM 100 MG CAPSULE (FP) PO SCH (10:27)
== END 2023-07-02 13:32 | disposition home or self-care (01) | DRG 540 ==
LOC: JLDR 10:10 → J3W 18:00
PROVIDERS: ADMIT Obstetrics & Gynecology; ATTEND Obstetrics & Gynecology
PROC: 10D00Z1 Extraction of Products of Conception, Low, Open Approach (ICD-10-PCS; principal; 2023-06-29)
DX: O34.211 Maternal care for low transverse scar from previous cesarean delivery (principal); O62.2 Other uterine inertia; Z3A.38 38 weeks gestation of pregnancy; Z37.0 Single live birth
CPT/HCPCS: 36415; 36600; 80048; 82803; 85025; 85610; 85730; 86780; 86850; 86900; 86901; 87389; 88307-TC

== ENCOUNTER 2023-09-14 15:44 | Emergency (ER) | payer OTHER ==
[2023-09-14 17:43] VITALS: BP 101/60; PULSE 55; RESP 17; TEMP 97.3; BMI 29.5
[2023-09-14] MEDS ORDERED: ACETAMINOPHEN 500 MG TABLET (FP) PO ONE (17:54)
[2023-09-14] MEDS ORDERED: KETOROLAC TROMETHAMINE 60 MG/2 ML VIAL IM ONE (17:54)
[2023-09-14] MEDS ORDERED: KETOROLAC TROMETHAMINE 30 MG/1 ML VIAL ONE (18:01)
[2023-09-14] MEDS ORDERED: ACETAMINOPHEN 500 MG TABLET (FP) ONE (18:07)
== END 2023-09-14 22:00 | disposition left against medical advice (07) ==
LOC: JER 15:44
PROC: 3E0233Z Introduction of Anti-inflammatory into Muscle, Percutaneous Approach (ICD-10-PCS; principal; 2023-09-14)
DX: R51.9 Headache, unspecified (principal); M54.2 Cervicalgia; R42 Dizziness and giddiness; M54.6 Pain in thoracic spine; M54.50 Low back pain, unspecified; V49.40XA Driver injured in collision with unspecified motor vehicles in traffic accident, initial encounter; Y93.I9 Activity, other involving external motion; Y92.410 Unspecified street and highway as the place of occurrence of the external cause
CPT/HCPCS: 70450-TC; 71045-TC-FY; 72125-TC; 72170-TC-FY; 99284-25

== ENCOUNTER 2024-06-24 22:21 | Emergency (ER) | payer OTHER ==
[2024-06-24 22:32] VITALS: BP 104/63; PULSE 62; RESP 16; TEMP 98.7; BMI 29.9
[2024-06-24] MEDS ORDERED: FAMOTIDINE 20 MG TABLET ONE (23:13)
[2024-06-24] MEDS ORDERED: MAG HYDROX/AL HYDROX/SIMETH 30 ML UNIT-DOSE CUP ONE (23:13)
[2024-06-24] MEDS ORDERED: ACETAMINOPHEN INJECTION 100 ML ONE (23:13)
[2024-06-24 23:15] LABS: EOS % 4.2 % (0-4.5); HEMATOCRIT 36.2 % (32.4-45.2); HEMOGLOBIN 11.9 GM/dL (10.7-15.3); MCH 27.3 pg (25.7-33.7); MCHC 32.8 g/dl (32.0-36.0); MEAN CELL VOLUME 83.2 fl (80-96); MEAN PLT VOLUME 8.4 fl (7.5-11.1); MONO % 5.8 % (3.8-10.2); PLATELET COUNT 295 10^3/uL (134-434); RBC 4.35 M/mm3 (3.60-5.2); RDW 14.7 % (11.6-15.6); WHITE BLOOD COUNT 7.6 K/mm3 (4.0-10.0)
[2024-06-24 23:23] LABS: INR 0.88 (0.83-1.09); PROTHROMBIN TIME (PATIENT) 10.2 SEC (9.7-13.0)
[2024-06-24 23:26] LABS: ACTIVATED PTT 31.6 SECONDS (25.2-36.5)
[2024-06-24] MEDS: MAG HYDROX/AL HYDROX/SIMETH 30 ML UNIT-DOSE CUP PO ONE (23:28)
[2024-06-24] MEDS: ACETAMINOPHEN 1000 MG/100 ML BAG IVPB ONE (23:28)
[2024-06-24] MEDS: FAMOTIDINE 20 MG TABLET PO ONE (23:28)
[2024-06-24] MEDS: LACTATED RINGERS SOLUTION 1000 ML INFUS.BAG IV ONE (23:28)
[2024-06-24 23:41] LABS: ALBUMIN 3.8 g/dl (3.4-5.0); BLOOD UREA NITROGEN 13.3 mg/dL (7-18); CALCIUM 9.6 mg/dL (8.5-10.1)
[2024-06-24 23:44] LABS: CREATININE 0.6 mg/dL (0.55-1.3)
[2024-06-24 23:46] LABS: BILIRUBIN,TOTAL 0.2 mg/dL (0.2-1)
== END 2024-06-25 02:22 | disposition home or self-care (01) ==
LOC: JER 22:21
PROC: 3E033NZ Introduction of Analgesics, Hypnotics, Sedatives into Peripheral Vein, Percutaneous Approach (ICD-10-PCS; principal; 2024-06-24)
DX: R07.81 Pleurodynia (principal); R12 Heartburn
CPT/HCPCS: 36415; 71045-TC-FY; 80053; 84484; 84702; 85025; 85610; 85730; 93005; 93010; 99285-25; J0131

== ENCOUNTER 2025-01-03 10:08 | Emergency (ER) | payer SELFPAY ==
[2025-01-03 10:17] VITALS: BP 102/68; PULSE 80; RESP 16; TEMP 98.3; BMI 29.0
[2025-01-03 10:56] LABS: ABSOLUTE IMMATURE GRANULOCYTES 0.02 x10^3/uL (0.0-0.031); BASOPHILS # 0.05 x10^3/uL (0.01-0.08); EOSINOPHILS # 0.13 x10^3/uL (0.04-0.36); HEMATOCRIT 41.2 % (34.1-44.9); MCHC 31.6 g/dl (32.2-35.5); MEAN CELL VOLUME 85.7 fl (79.4-94.8); MEAN PLT VOLUME 11.5 fl (9.4-12.3); MONOCYTE # 0.43 x10^3/uL (0.24-0.86); MONOCYTE % 6.5 % (4.7-12.5); PLATELET COUNT 271 x10^3/uL (182-369); RDW 14.1 % (12.1-16.8)
[2025-01-03 11:09] LABS: URINE COLOR RED
[2025-01-03 11:10] LABS: URINE GLUCOSE (UA) NEGATIVE (NEGATIVE)
[2025-01-03 11:11] LABS: URINE BILIRUBIN NEGATIVE (NEGATIVE); URINE UROBILINOGEN 0.2 mg/dL (0.2-1.0)
[2025-01-03 11:12] LABS: URINE APPEARANCE TURBID; URINE PROTEIN 3+ (NEGATIVE)
[2025-01-03 11:14] LABS: POTASSIUM 4.3 mmol/L (3.5-5.1)
[2025-01-03 11:16] LABS: BLOOD UREA NITROGEN 12.5 mg/dL (7-18); CALCIUM 9.9 mg/dL (8.5-10.1)
[2025-01-03 11:20] LABS: CREATININE 0.6 mg/dL (0.55-1.3)
== END 2025-01-03 17:35 | disposition home or self-care (01) ==
LOC: JER 10:08
DX: O03.9 Complete or unspecified spontaneous abortion without complication (principal)
CPT/HCPCS: 36415; 76817-TC; 80048; 81003; 84702; 84703; 85025; 86850; 86900; 86901; 87086; 99284-25